=== PATIENT | female | born 1940 | race Caucasian/White ===

== ENCOUNTER 2018-07-10 06:14 | Inpatient (IN) ==
[~2018-07-10 06:14] MED LIST: BUPIVACAINE 0.25% W/ EPI - 10 ML VIAL ONE; BUPivacaine Inj 0.25% PF - 10ml vial ONE; LIDOCAINE W/ SODIUM BICARB 0.5 ML SYR ONE; LIDOCAINE W/ SODIUM BICARB 0.5 ML SYR SUBD ONE; Lactated Ringers 1,000 ML PRIMARY IV ONE; Lactated Ringers 1,000 ML PRIMARY IV SCH; MIDAZOLAM 5 MG/1 ML ONE; Nasal Sanitizer POPSWAB ampule 3 AMP (Nozin) PREOP DOSE ENOS SCH; ceFAZolin Inj 2gm (Premix) 2 GM/50 ML BAG IV ONE; fentaNYL Inj 100 MCG/2 ML VIAL ONE
[2018-07-10] MEDS ORDERED: LIDOCAINE W/ SODIUM BICARB 0.5 ML SYR ONE (06:16)
[2018-07-10] MEDS ORDERED: BUPIVACAINE SPINAL 7.5 MG/1 ML - 2 ML IV ONE (06:49)
[2018-07-10] MEDS ORDERED: EPINEPHrine Inj (1:1,000) 1 mg/ml amp ONE (06:50)
[2018-07-10] MEDS ORDERED: Sodium Chloride 0.9% vial 40 ML ONE (06:50)
[2018-07-10] MEDS ORDERED: BACITRACIN 50,000 UNIT VIAL IRRIG ONE (06:50)
[2018-07-10] MEDS ORDERED: BUPIVACAINE 0.25% W/ EPI - 10 ML VIAL ONE (06:50)
[2018-07-10] MEDS ORDERED: BUPivacaine Liposome/PF (Exparel) Inj 20ml vial INFIL ONE (06:51)
[2018-07-10] MEDS ORDERED: MORPHINE SULFATE/PF 10 MG/10 ML AMPULE ONE (06:52)
[2018-07-10] MEDS ORDERED: TRANEXAMIC ACID 1,000 MG / 10 ML VIAL ONE (07:17)
[2018-07-10] MEDS ORDERED: Lactated Ringers 1,000 ML PRIMARY IV ONE ×2 (07:29→09:08)
[2018-07-10] MEDS ORDERED: KETAMINE 100 MG/1 ML - 5 ML ONE (07:39)
[2018-07-10] MEDS ORDERED: LIDOCAINE MPF 2% - 5 ML (20 MG/1 ML) ONE (07:45)
[2018-07-10] MEDS ORDERED: MAGNESIUM SULFATE ONE (07:46)
[2018-07-10] MEDS ORDERED: KETOROLAC 30 MG/1 ML VIAL ONE (08:04)
--- NOTE | 2018-07-10 10:24 | CRNA.PROCE ---
Nerve Block Documentation - - Safety Measures: Time Out Taken, Site Verified - - Type of Nerve Block Used: Right Adductor Canal Nerve Block Position for Nerve Block: Supine Moniters Used During Block: EKG, SPO2, NIBP Oxygen Supplemented: Yes Sedation Used - Enter Amount in Comment Field [ANES.SEDAT]: Midazolam (mg): Yes (1.5), Fentanyl (mcg): Yes (25) Skin Prep Used: ChloroPrep Draped: No Technique: Ultrasound Nerve Block Needle Used: EchoEpizyme 100 mm Local Anesthetic - Enter Amt in Comment Field [ANES.LOCNB]: 0.25 % Bupivacaine Plain (mL): Yes (10cc), 0.25 % Bupivicaine with Epinephrine 1:200,000 (mL): Yes (20cc) - - PreOp Block : Time In: 06:32 PreOp Block : Time Out: 06:50 Anesthesia Time - Other Weight: 58.967 kg Height: 5 ft 4 in Body Mass Index (BMI): 22.3
--- NOTE | 2018-07-10 10:26 | CRNA.PROCE ---
Central Neuraxis Block Placemt - - Safety Measures: Time Out Taken, Site Verified - - Type of Block: Subarachnoid Reason for Block: Surgical Moniters Used During Block: EKG, SPO2, NIBP Positioning: Sitting Skin Prep Used: ChloroPrep Draped: Yes Skin Infiltration - Enter Amount Used in Comment Field: 1% Xylocaine with Bicarb (mL): Yes (.5cc) Spinal Needle Used: 22 Aileen 80 mm Local Anesthetic - Enter Amount Used in Comment Field: 0.75 % Bupivacaine with Dextrose (ml): Yes (2cc) Additive Used - Enter Amount Used in Comment Field: Preservative Free Morphine ( mg): Yes (0.1mg), Epinephrine 1:1000 Needle Rinse (mL): Yes (wash) Bioclusive Dressing Applied: No Anesthesia Time - Block Time PreOp Block : Time In: 06:32 PreOp Block : Time Out: 06:50 - Other Weight: 58.967 kg Height: 5 ft 4 in Body Mass Index (BMI): 22.3
--- NOTE | 2018-07-10 10:28 | CRNA.PROGR ---
Anesthesia Time - Procedure/Recovery Time Start Date: 07/10/18 Anesthesia : Time In: 07:18 Anesthesia : Time Out: 09:50 - Block Time PreOp Block : Time In: 06:32 PreOp Block : Time Out: 07:12 - Other Weight: 58.967 kg Height: 5 ft 4 in Body Mass Index (BMI): 22.3 Physical Status: P2 Anesthesia Type: Spinal Block
--- NOTE | 2018-07-10 10:43 | DI ---
XR KNEE 1 OR 2 VWS,07/10/2018 9:54 AM: Clinical History: Postoperative right knee. Previous Exam: None at this facility. Findings: AP and lateral views of the right knee are obtained, and demonstrate postsurgical changes consistent with right total knee arthroplasty. There is subcutaneous air noted as well as intra-articular air. Overlying plaster is seen. There is no evidence of hardware loosening. Impression: Status post right total knee arthroplasty.
[2018-07-10] MEDS ORDERED: ACETAMINOPHEN 325 MG TABLET PO PRN (10:50)
[2018-07-10] MEDS ORDERED: diphenhydrAMINE 25 MG CAPSULE PO PRN (10:50)
[2018-07-10] MEDS ORDERED: Lactated Ringers 1,000 ML PRIMARY IV SCH (10:50)
[2018-07-10] MEDS ORDERED: KETOROLAC 15 MG/1 ML VIAL IVP PRN (10:50)
[2018-07-10] MEDS ORDERED: BISACODYL 5 MG TABLET PO PRN (10:50)
[2018-07-10] MEDS ORDERED: BISACODYL 10 MG SUPPOSITORY RECTAL PRN (10:50)
[2018-07-10] MEDS ORDERED: CELECOXIB 200 MG CAPSULE PO PRN (10:50)
[2018-07-10] MEDS ORDERED: ONDANSETRON 4 MG/2 ML VIAL IVP PRN (10:50)
[2018-07-10] MEDS ORDERED: Prochlorperazine Tab 10 MG TAB PO PRN (10:50)
[2018-07-10] MEDS ORDERED: CALCIUM CARBONATE 500 MG (TUMS) CHEWABLE TABLET PO PRN (10:50)
[2018-07-10] MEDS ORDERED: MAG HYDROX/AL HYDROX/SIMETH 30 ML SUSP PO PRN (10:50)
[2018-07-10] MEDS ORDERED: MORPHINE SULFATE 2 MG/1 ML IVP PRN (10:50)
--- NOTE | 2018-07-10 11:05 | CONSULT ---
Consult Note - Consult Consult Date: 07/10/18 Reason for Consult: PostOp Consulation : Ortho Primary Care Provider: Esme Olguin - History of Present Illness History of Present Illness: This is a 78 years old female with medical history significant for history of osteoarthritis of the right knee who came in to have a right total knee replacement and was done today by Dr. Pineda. The hospitalist service were consulted. Patient denying any significant medical history apart from the osteoarthritis. She is not taking any medications except multivitamins at home. She is denying symptoms currently. Past Medical History Medical History: Osteoarthritis of the right knee Surgical History: 1. Partial hysterectomy. 2. Appendectomy. 3. History of tonsillectomy Family History: Reviewed an Not Pertinent Past Social History: Does not smoke, does not drink no drugs. Lives in [place]. Tobacco Use: Never Smoker In the Past 12 Months, Have Used or Abuse Any of the Following Substance: None Alcohol Use: None Review of Systems - Review of Systems All Systems: Reviewed & No Additional Complaints Except as Stated Medication / Allergies Home Medications: Home Medications 3 Medication Instructions Recorded Confirmed Type Iron/Calcium/E/Folic Acid/Mvit 1 each PO DAILY 07/10/18 07/10/18 History [Vitafol Caplet] Allergies/Adverse Reactions: Allergies 3 Allergy/AdvReac Type Severity Reaction Status Date / Time Sulfa (Sulfonamide Allergy Intermediate HIVES Verified 07/10/18 07:20 Antibiotics) Exam - Vitals Vital Signs: Vital Signs Temperature 97 F Pulse Rate 75 Respiratory Rate 12 Blood Pressure 112/64 Pulse Ox 100 Oxygen Flow Rate 2L Height 5 ft 4 in Weight 130 lb - General General Appearance: No Acute Distress, Cooperative, Thin - Head Head Exam: Normal Inspection - Eye Eye Exam: POSITIVE: Normal Appearance - ENT ENT Exam: POSITIVE: Normal Exam - Neck Neck Exam: Normal Inspection - Respiratory Respiratory Exam: POSITIVE: Clear to Auscultation - Bilaterally - Cardiovascular Cardiovascular Exam: POSITIVE: RRR - GI/Abdominal GI/Abdominal Exam: POSITIVE: Normal Bowel Sounds, Non Tender, Non Distended, Soft, No Organomegaly - Rectal Rectal Exam: POSITIVE: Deferred - External Exam: POSITIVE: Deferred - Extremities Additional Extremities Exam Details: Dressing applied to right knee - Neurological Neurological Exam: POSITIVE: Alert, Oriented x 3, CN II-XII Intact, No Facial Droop, Speech Intact / Clear - Psychiatric Psychiatric Exam: POSITIVE: Normal Affect - Integumentary Integumentary Exam: POSITIVE: Normal Color Assessment and Plan - Patient Problems (1) Status post right knee replacement Current Visit: Yes Status: Acute Comment: Pain medication, and PT and OT consultation were written by orthopedics. For DVT prophylaxis they put her on Lovenox. Code(s): Z96.651 - Presence of right artificial knee joint
[2018-07-10] MEDS ORDERED: MORPHINE SULFATE 4 MG/1 ML IV PRN (11:06)
[2018-07-10] MEDS ORDERED: MORPHINE SULFATE 10 MG/1 ML IV PRN (11:06)
[2018-07-10] MEDS ORDERED: MORPHINE SULFATE 2 MG/1 ML IV PRN (11:06)
[2018-07-10] MEDS: ceFAZolin Inj 2gm (Premix) 2 GM/50 ML BAG IV SCH ×2 (15:51→23:24)
[2018-07-10] MEDS: HYDROcodone-APAP 7.5 MG-325 MG TABLET PO PRN (18:00)
[2018-07-10] MEDS: DOCUSATE 100 MG CAPSULE PO SCH (20:55)
[2018-07-11] MEDS: IBUPROFEN 400 MG TABLET PO PRN ×2 (03:19→19:40)
[2018-07-11] MEDS: HYDROcodone-APAP 7.5 MG-325 MG TABLET PO PRN ×3 (04:51→15:01)
[2018-07-11 04:56] LABS: Hematocrit [HCT] 36.1 % (37.0-47.0); Hemoglobin [HGB] 11.8 g/dL (12.0-16.0); MEAN CORPUSCULAR HEMOGLOBIN 29.8 PG (27-31); MEAN CORPUSCULAR HGB CONC 32.7 g/dL (33-37); MEAN CORPUSCULAR VOLUME 91.2 FL (81-99); MEAN PLATELET VOLUME 8.8 FL (7.4-12.2); RED BLOOD COUNT 3.96 10^6/uL (4.20-5.40)
[2018-07-11 05:13] LABS: BLOOD UREA NITROGEN 12 mg/dL (7-22)
--- NOTE | 2018-07-11 05:55 | ORTHO.PROG ---
Last Taken Vital Signs: Vital Signs - Last Taken Temperature 97.7 F 07/11/18 04:50 Pulse Rate 85 07/11/18 04:50 Respiratory Rate 16 07/11/18 04:50 Blood Pressure 134/72 07/11/18 04:50 Pulse Ox 96 07/11/18 04:50 Subjective: sleeping Assessment: sleeping, no problems overnight per nursing Plan: stable POD #1 s/p TKA DC home when meets criteria
[2018-07-11] MEDS: Esomeprazole DR 20mg Capsule PO SCH (07:10)
[2018-07-11] MEDS: ENOXAPARIN SODIUM 30 MG/0.3 ML SYRINGE SUBCUT SCH ×2 (08:15→21:35)
[2018-07-11] MEDS: DOCUSATE 100 MG CAPSULE PO SCH ×2 (08:15→21:35)
--- NOTE | 2018-07-11 08:52 | PDOC(PROG) ---
Date of Service: 07/11/18 Time of Service: 08:10 Interval History: Subjective Patient was sitting in the chair does not appear in distress. No symptoms. Objective : Data - Labs CBC and BMP: 07/11/18 04:50 07/11/18 04:50 Objective : Exam - General General Appearance: No Acute Distress, Cooperative - Head Head Exam: Normal Inspection - Eye Eye Exam: Normal Appearance - ENT ENT Exam: Normal Exam - Neck Neck Exam: Normal Inspection - Respiratory Respiratory Exam: Clear to Auscultation - Bilaterally - Cardiovascular Cardiovascular Exam: RRR - GI/Abdominal GI/Abdominal Exam: Normal Bowel Sounds, Non Tender, Non Distended, Soft - Rectal Rectal Exam: Deferred - External Exam: Deferred - Extremities Additional Extremities Exam Details: Dressing applied to the right leg - Back Back Exam: Normal Inspection - Neurological Neurological Exam: Alert, Oriented x 3, CN II-XII Intact, No Facial Droop, Speech Intact / Clear - Psychiatric Psychiatric Exam: Normal Affect Assessment and Plan - Patient Problems (1) Status post right knee replacement Current Visit: Yes Status: Acute Comment: Status post knee replacement continue PT and OT. Pain medication written. For DVT prophylaxis she is on Lovenox. Mild anemia will watch her blood count. Code(s): Z96.651 - Presence of right artificial knee joint
[2018-07-11] MEDS ORDERED: Lactated Ringers 500 ML PRIMARY IV ONE (11:22)
[2018-07-11] MEDS: Lactated Ringers 1,000 ML PRIMARY IV SCH ×2 (12:01→23:19)
--- NOTE | 2018-07-11 14:42 | PTI REPORT ---
Thank you for the referral of Loyda Rascon. She was seen on 07/10/18 for an inpatient evaluation status post right total knee replacement. SUBJECTIVE: The patient is a 78-year-old female who underwent a right total knee replacement earlier today. The patient states that she is doing well this afternoon and is willing to participate with a physical therapy evaluation. The patient reports 0/10 pain at this time and states that she is getting feeling back into her right lower extremity. She is able to actively perform ankle pumps on both the right and left sides. The patient states that she lives in [place], [place] and she lives by herself. She states that prior to her surgery she was independent with her ADLs and was able to ambulate without use of an assistive device. The patient states that she has two steps without a railing to get into her house. Once inside, everything she needs to access is on the main level. She does have stairs to her basement which she does go down approximately one time per week. The patient denies any previous total knee or hip replacements. PAST MEDICAL HISTORY: Past medical history can be found in the patient's medical record. OBJECTIVE FINDINGS: General observations: The patient was alert and oriented to setting upon PT arrival. The patient was supine in bed with head of bed elevated. She did have an IceMan Cold Therapy Unit in place over the right knee along with the SCD pumps, an IV, and a Ko in place. The patient was on one liter of oxygen. Her oxygen saturation was at 99%. The patient's blood pressure was taken in a supine position and was 117/69 with a heart rate of 64 beats per minute. Bed mobility: The patient was able to move from supine to seated edge of bed with contact guard assist x1 for safety. Prior to moving to seated edge of bed , a knee immobilizer was placed on the right lower extremity and the SELMA hose was placed over the left lower extremity. The patient demonstrated good initial seated edge of bed balance. She denied any lightheadedness or dizziness. Her blood pressure was 133/76. Her oxygen saturation was 100%, and her heart rate was 70 beats per minute. The patient sat edge of bed for a couple of minutes. She did have a little variation in her oxygen saturation between the high 80s to 100% and she was cued on proper breathing. The patient transferred from seated to supine with contact guard assist x1 for safety and to maneuver the lines and leads. Transfers: The patient transferred from a seated to standing position with the knee immobilizer in place on the right side. The walker was placed in front of her and a gait belt was placed around the patient. Contact guard assist x1 was provided for the sit to stand transfer. The patient demonstrated fair initial standing balance. She denied any lightheadedness or dizziness. She did have a slight decrease in her blood pressure to 104/70. The patient stated that it felt good to stand up. The patient transferred from a standing to seated position with contact guard assist x1. Ambulation: We did not do any walking at this time due to the drop in her blood pressure. Also, the patient had not eaten yet for the day and the cafeteria just arrived with some food for the patient. ASSESSMENT: The patient has good rehab potential. Problem List: Pain in the right knee Decreased active and passive range of motion of the right knee Decreased strength of the right lower extremity along with an antalgic gait Short-Term Goals: To be met by discharge from inpatient: Patient will be able to ambulate at least 150 feet with walker, safely and independently in order to return back home. Patient will be able to perform transfers from bed to stand safely and independently. Patient will be able to ascend and descend at least 5 steps with use of walker safely and independently. Long-Term Goals: To be met following discharge from inpatient: Patient will attend outpatient physical therapy for total knee rehab in [place], [place]. TREATMENT PLAN: Patient will be seen B.I.D during the week and one time per day over the weekend as an inpatient to address the above goals and objectives. INITIAL TREATMENT: Treatment today consisted of the initial evaluation. Following treatment once the patient was supine in bed, the knee immobilizer was removed. The IceMan Cold Therapy Unit was placed over the right knee and the SCD pump was placed back on the right lower extremity. One was not placed on the left lower extremity as the battery was . We did notify the nursing staff about that. After the patient was comfortable in bed, the therapist instructed her on how to perform ankle pumps and quad sets and to continue to work on these until we see her tomorrow morning. The patient's bed alarm was set and her call light was placed within reach. EMMA
--- NOTE | 2018-07-11 15:29 | OTI REPORT ---
Thank you for the referral of Loyda Rascon. She was seen on 07/11/18 for an occupational therapy inpatient evaluation status post right total knee arthroplasty. SUBJECTIVE: The patient is a 78-year-old female who is from [place]. Prior to admission the patient was very independent with all of her ADLs including driving. She says typically she is very active and likes to get going with things. The patient does have a higher toilet; however, she is a little concerned about the shower and standing up without a grab bar. PAST MEDICAL HISTORY: Past medical history can be found in the patient's medical record. OBJECTIVE FINDINGS: General observations: The patient was sitting in chair upon the therapist's arrival. Activities of daily living: The patient demonstrated being able to don socks, shorts, and underwear and pull them up to waist level with stand by assist. She was also able to don her shoes independently with the lace and tie. The patient was able to complete hygiene activities at the sink for a couple of minutes. The patient was issued a shower chair with a back in order to be safe within the shower. Transfers: The patient requires contact guard to stand by assist for all functional transfers. Ambulation: The patient ambulated out of her room. Once she was out of her room she became very nauseated and sick and we had to take her back to her room. The patient ended up throwing up in the emesis bag. Her nurse was present when this happened and she took over care. ASSESSMENT: The patient demonstrated independence and safety with all ADLs and functional activities. She would benefit from at least one more session to go over how to get in and out of the shower safely. Short-Term Goals: To be met by discharge from inpatient: Patient will be able to complete a shower transfer with stand by assistance. Patient will be able to dress self independently. Long-Term Goals: To be met following discharge from inpatient: Patient will demonstrate independence and safety with all ADLs and functional transfers. TREATMENT PLAN: Patient will be seen for one more session of OT. INITIAL TREATMENT: Treatment today consisted of the initial evaluation followed by the patient completing dressing activities, functional transfers, and ambulation. Unfortunately the patient became very nauseated and got sick and will need to wait for further treatment. MTDD
--- NOTE | 2018-07-11 16:11 | PT.PROG ---
Progress Note Progress Note: S. Patient stated she would like to go for a walk. O. Patient ambulated 120 feet in the lazo and returned to her room and was left in bed with alarm and call light. A. Patient tolerated ambulation well, she was able to ambulate the full distance with out problem however became very dizzy and nauseous when sitting, nursing was notified. Patient would continue to benefit from skilled therapy to increase strength and endurance at this time. P. Continue POC.
--- NOTE | 2018-07-11 16:18 | PT.PROG ---
Progress Note Progress Note: S. Patient stated she would go to the therapy gym this afternoon. She reports her knee is feeling good. O. Patient ambulated 20 feet to the wheelchair and was wheeled to the therapy gym where she had heat to her knee and performed, heel slides, quad sets, ankle pumps, short arc quads all x 10. Patient performed sit to stands x 5 and ambulated 10 feet to the wheelchair and was returned to her room where she was left in bed with alarm and call light. A. Patient tolerated therapy well this afternoon, her knee is doing well and she has regained quad strength, however she continues to struggle with vomiting and nausea at this time. Patient would continue to benefit from skilled therapy to increase strength and mobility at this time. P. Continue POC.
--- NOTE | 2018-07-11 21:40 | ORTHO.PROG ---
Last Taken Vital Signs: Vital Signs - Last Taken Temperature 98.1 F 07/11/18 20:17 Pulse Rate 87 07/11/18 20:17 Respiratory Rate 16 07/11/18 20:17 Blood Pressure 129/67 07/11/18 20:17 Pulse Ox 93 07/11/18 20:17 Subjective: some nausea today likely secondary to hydrocodone. did Ok w Ibuprofen 400. will try ibu 600. also could try tramadol. Plan: as above. mobilize. - Patient Problems (1) Status post right knee replacement Current Visit: Yes Status: Acute Priority: High Onset Date: ~07/10/18 Code(s): Z96.651 - Presence of right artificial knee joint
[2018-07-12] MEDS: IBUPROFEN 600 MG TABLET PO PRN ×3 (01:08→13:13)
[2018-07-12 05:35] LABS: Hemoglobin [HGB] 10.4 g/dL (12.0-16.0); MEAN CORPUSCULAR HEMOGLOBIN 29.4 PG (27-31); MEAN CORPUSCULAR HGB CONC 32.5 g/dL (33-37); MEAN CORPUSCULAR VOLUME 90.4 FL (81-99); MEAN PLATELET VOLUME 10.3 FL (7.4-12.2); RED BLOOD COUNT 3.54 10^6/uL (4.20-5.40)
[2018-07-12 05:50] LABS: BLOOD UREA NITROGEN 10 mg/dL (7-22); BUN/CREATININE RATIO 14.28 (6-20)
[2018-07-12] MEDS: Esomeprazole DR 20mg Capsule PO SCH (07:39)
[2018-07-12] MEDS: DOCUSATE 100 MG CAPSULE PO SCH (08:55)
[2018-07-12] MEDS: ENOXAPARIN SODIUM 30 MG/0.3 ML SYRINGE SUBCUT SCH (08:55)
--- NOTE | 2018-07-12 12:03 | PT AM DAY ---
Diagnosis : Right TKA AM - Physical Therapy S: The patient reports she is doing well. O: The patient ambulated to the therapy department. She is doing well and has good quad control, so we discontinued use of the knee immobilizer. She did well with open chain activities and closed chain activities and demonstrated 95 degrees of knee flexion. She was able to ambulate and ascend and descend a few steps and stairs with stand by assist. She then ambulated back to her room. A: The patient does live alone at home in [place] and she is on the border of being able to be discharged independently. As she is completely independent at home, the therapist recommends keeping her until tomorrow as she had such a rough day yesterday with vomiting and nauseousness, to make sure she has a fairly good 24-hour period before discharge both medically and with her knee. P: Continue seeing patient BID during the week and one time per day over the weekend for transfers, ambulation, and range of motion/strengthening exercises. EMMA
[2018-07-12 12:18] VITALS: BP 159/86; RESP 18; TEMP 97; O2SAT 92
--- NOTE | 2018-07-12 13:02 | PT.PROG ---
Progress Note Progress Note: S. Patient stated that she is feeling good about going home. O. Patient ambulated 60 feet to the the stair well and ascended and descended 4 stairs then ambulated 60 feet back to her room where she was left in the restroom and nursing was notified. A. Patient tolerated stair training well. Patient has met all goals at this time. would benefit from Outpatient therapy. P. Patient is cleared from therapy.
--- NOTE | 2018-07-12 14:12 | PDOC(PROG) ---
Interval History: Patient is doing well has no complaints no chest pain nausea vomiting. Objective : Data - Labs CBC and BMP: 07/12/18 04:30 07/12/18 04:30 Objective : Exam - General General Appearance: Cooperative - Respiratory Respiratory Exam: Clear to Auscultation - Bilaterally, Breathing Non Labored, Normal To Percussion, Normal to Percussion and Palpation - Cardiovascular Cardiovascular Exam: RRR, No Murmur, No Clicks, No Gallops, No Rubs, PMI Non- Displaced - GI/Abdominal GI/Abdominal Exam: Normal Bowel Sounds, Non Tender, Non Distended, Soft, No Masses, No Hepatomegaly, No Splenomegaly, No Organomegaly - Extremities Extremities Exam: No Clubbing Present, No Edema Present, No Cyanosis Present Assessment and Plan - Patient Problems (1) Status post right knee replacement Current Visit: Yes Status: Acute Priority: High Onset Date: ~07/10/18 Comment: Doing well apparently physical therapy has released her. Defer to Dr. Pineda for instructions patient does not want any pain medications she will be using her ibuprofen [id number]. Vital signs are stable blood pressure within normal limits no further nausea okay to be discharged from the medical standpoint Code(s): Z96.651 - Presence of right artificial knee joint
--- NOTE | 2018-07-17 12:50 | ORTHO.DC ---
Discharge Summary Hospital Course: Ms Rascon was admitted on Jul 10 to undergo right total knee replacement. She underwent the procedure without complication and was taken to PACU in stable condition. She was transferred to Med/Surg where she make good progress with ambulation and pain control. She was nauseated with Hydrocodone and she felt that her pre op ibuprofen would be adequate for pain control. She was discharged to home on her second post op day, ambulating, including stairs and transfers and had good pain control with Ibuprofen 600mg. She was given TKA post op instructions, to include dressing and wound care. Discharge Medications: Discharge Medications Iron/Calcium/E/Folic Acid/Mvit [Vitafol Caplet] 1 each PO DAILY 07/10/18 [ History] Follow-Up: Esme Olguin [Primary Care Provider] - As Needed Garfield Pineda [STAFF PHYSICIAN] - 08/01/18 9:00 am ( Appt is in [place]) Discharge Instructions Provided to Patient / Family: Knee Replacement (DC) Exam - Vitals Vital Signs: Vital Signs Temperature 97 F Temperature Source Temporal Artery Scan Pulse Rate [Apical] 70 Pulse Rate [Pulse Oximeter] 106 Pulse Rate 75 Respiratory Rate 18 Blood Pressure [Left Arm] 159/86 Blood Pressure [Right Arm] 126/63 Blood Pressure 112/64 Pulse Ox 92 Oxygen Flow Rate 1 Oxygen Delivery Method Room Air Height 5 ft 4 in Weight 63.503 kg
== END 2018-07-12 14:52 | disposition home or self-care (01) | DRG 470 ==
LOC: OPS 06:14 → MED/SURG 10:44
PROVIDERS: ADMIT Orthopaedic Surgery; ATTEND Orthopaedic Surgery